=== PATIENT | female | born 1955 | race Caucasian/White ===

== ENCOUNTER 2016-12-12 01:17 | Emergency (ER) | payer MEDICARE, OTHER ==
--- NOTE | ~2016-12-12 | EKG ---
PATIENT: INDIRA JOHNSON UNIT #: [id number] Ventricular Rate: 73 BPM Atrial Rate: 73 BPM P-R Interval: 126 ms QRS Duration: 92 ms Q-T Interval: 450 ms QTC Calculation(Bezet): 495 ms P [place]: 53 degrees Calculated R [place]: -33 degrees Calculated T [place]: -41 degrees Diagnosis Line: Normal sinus rhythm Diagnosis Line: Left axis deviation Diagnosis Line: Minimal voltage criteria for LVH, may be normal Diagnosis Line: variant Diagnosis Line: ST and T wave abnormality, consider inferior Diagnosis Line: ischemia Diagnosis Line: Prolonged QT Diagnosis Line: Abnormal ECG Diagnosis Line: No previous ECGs available Diagnosis Line: Confirmed by SOHA RODRIGUEZ MD ([id number]) on 12/12/2016 Diagnosis Line: 4:45:06 PM INTERPRETING MD: MICHAEL ORNELAS
--- NOTE | ~2016-12-12 | CR72 ---
[facility] A Service of [facility] RADIOLOGY TEXT RESULTS PATIENT: INDIRA JOHNSON LOCATION: [facility] : 54 UNIT #: [id number] AGE: [address]: Colin Olivares MD SEX: F ORDER DR: [id number] [place], [place] [address] [id number] E MR#: [id number] Acc #: [id number] NAME: INDIRA JOHNSON. : 1955 SEX: F STUDY DATE/TIME: 12/12/2016 2:25 UNIT: [facility] ROOM: STUDY DESCRIPTION: CR Chest Single View Portable Attending Physician: Colin Olivares Ordering Physician: Ed Doctor [id number] [facility] Primary Care Physician: Primary Care Physician No MEDICAL IMAGING REPORT This report is preliminary unless electronic signature is present EXAM Portable AP view chest COMPARISON December 01, 2016 and September 13, 2015 INDICATIONS 61-year-old female with cough today. History of COPD. Syncopal episode tonight with dizziness. FINDINGS No evidence of pneumothorax, pleural effusion or acute airspace disease. There is a stable hazy attenuation over the left lung base perhaps representing a combination of breast shadow, cardiac shadow and/or pericardial fat pad. This is unchanged from September 2015. Cardiomediastinal silhouette is stable and within normal limits for portable technique. IMPRESSION No acute radiographic abnormality. Dictated by... Magan Rothman M.D. THIS IS AN ELECTRONICALLY VERIFIED REPORT Magan Rothman M.D. at 12/16/2016 12:35 PM MARTINEZ/connie TD: 12/12/2016 08:59 JOB #: [id number] MEDICAL IMAGING REPORT [facility] [place] [facility]IOLOGY TEXT RESULTS PATIENT: INDIRA JOHNSON LOCATION: [facility] : 54 UNIT #: [id number] AGE: [address]: Colin Olivares MD SEX: F ORDER DR: COPY
--- NOTE | ~2016-12-12 | CR181 ---
[facility] A Service [facility] RADIOLOGY TEXT RESULTS PATIENT: INDIRA JOHNSON LOCATION: [facility] : 54 UNIT #: [id number] AGE: [address]: Colin Olivares MD SEX: F ORDER DR: [id number] [facility] [address] [address] [address]. [place], [place] [address] [id number] E MR#: [id number] Acc #: [id number] NAME: INDIRA JOHNSON. : 1955 SEX: F STUDY DATE/TIME: 12/12/2016 1:04 UNIT: [facility] ROOM: STUDY DESCRIPTION: CR Lumbar Spine 2 or 3 Views Attending Physician: Paddy Olivares M.D. Ordering Physician: Olegario Adams M.D. Primary Care Physician: Primary Care Physician No MEDICAL IMAGING REPORT This report is preliminary unless electronic signature is present EXAM Lumbar spine, 3 views COMPARISON April 03, 2015. INDICATION 61-year-old female with low back pain after falling tonight after syncope. FINDINGS Cholecystectomy clips are noted. There appear to be 6 lumbar-type vertebral bodies. Using this nomenclature, there is posterior spinal fusion hardware at L5-L6 bilaterally with disc spacer material at that level. This is new from comparison. No evidence of hardware complication. No evidence of fracture of the lumbar spine. There is mild lower lumbar levoscoliosis. IMPRESSION Interval placement of spinal fusion hardware. No evidence of complication. No evidence of acute fracture or dislocation of the lumbar spine. Dictated by... Magan Rothman M.D. THIS IS AN ELECTRONICALLY VERIFIED REPORT Magan Rothman M.D. at 12/16/2016 11:11 AM MARTINEZ/carolina TD: 12/12/2016 08:48 JOB #: [id number] [facility] A Service [facility] RADIOLOGY TEXT RESULTS PATIENT: INDIRA JOHNSON LOCATION: [facility] : 54 UNIT #: [id number] AGE: [address]: Colin Olivares MD SEX: F ORDER DR: MEDICAL IMAGING REPORT COPY
[2016-12-12 00:56] LABS: BASOPHIL# 0.1 X10e3 (0-0.3); BASOPHIL% 0.3 % (0-2.5); DIFF IND YES; EOSINOPHIL# 0.3 X10e3 (0-0.7); EOSINOPHIL% 1.6 % (0.0-7.0); HEMATOCRIT 39.2 % (35.0-45.0); HEMOGLOBIN 12.8 gm/dL (12.0-16.0); LYMPHOCYTE# 2.2 X10e3 (1.0-3.5); LYMPHOCYTE% 13.3 % (17.0-45.0); MEAN CELL VOLUME 87.5 FL (83-96); MEAN CORPUSCULAR HEMOGLOBIN 28.6 PG (28-34); MEAN CORPUSCULAR HGB CONC 32.7 g/dL (30-36); MEAN PLATELET VOLUME 9.1 FL (6.5-11.5); MONOCYTE# 1.7 X10e3 (0-1.0); MONOCYTE% 10.2 % (3.0-12.0); NEUTROPHIL# 12.4 X10e3 (1.5-7.1); NEUTROPHIL% 74.6 % (40-75); PLATELET COUNT 212 X10e3 (140-420); RED BLOOD COUNT 4.48 X10e (3.90-5.30); RED CELL DISTRIBUTION WIDTH 14.9 % (11.0-15.5); WHITE BLOOD COUNT 16.6 X10e3 (4.0-10.5)
[2016-12-12 01:13] LABS: BLOOD UREA NITROGEN 13 mg/dL (9-23); BUN/CREATININE RATIO 14.44; CALCIUM SERUM 8.2 mg/dL (8.4-10.2); CARBON DIOXIDE 26 mmol/L (22-31); CHLORIDE 106 mmol/L (100-111); CREATININE SERUM 0.9 mg/dL (0.6-1.4); GLOM FILT RATE Estimated ABOVE60 mL/min (>60); GLUCOSE FASTING 145 mg/dL (70-110); POTASSIUM 3.3 mmol/L (3.5-5.1); SODIUM 140 mmol/L (135-145)
[~2016-12-12 01:17] MED LIST: ADVAIR 250-501 EAC1 IH; ADVAIR 2501 DISK W/D PO; ALBUTEROL 0.5ML INH; ALBUTEROL17 GM INH; ALBUTEROL17 GM NEB; ANEXSIA 7.5/3251 TA1 PO; ASPIRIN PO; BACTROBAN15 GM TOP; CARTIA PO; COMBIVENT INH14.7 GM INH; COMBIVENT U/D3 M2 INH; COUMADIN6 MG PO; CYMBALTA PO; CYMBALTA30 MG PO; DESYREL100 MG PO; DIAZEPAM PO; DIAZEPAM10 MG PO; DUONEB 2.5-0.5 M3 ML NEB; FLEXERIL10 M1 PO; FUROSEMIDE40 MG PO; HYDROCHLOROTHIA25 MG PO; HYDROCODONE/APA1 T16 PO; IMITREX PO; LANOXIN PO; LASIX PO; LISINOPRIL10 MG PO; LISINOPRIL20 MG PO; LORTAB 10/500 T1 TAB PO; LOSARTAN PO; LOSARTAN POTASS50 MG PO; METHADONE PO; METOPROLOL TAR25 MG; METOPROLOL TAR25 MG PO; MICRO-K PO; MICROZIDE12.5 M1 PO; MIDRIN CAPSULE1 CAP PO; NEURONTIN PO; NEXIUM PO; NICOTINE TRANSD21 MG TD; NILSTAT PO; NORCO 10-325 TA1 TAB PO; NORCO 5/325 TAB1 TAB PO; OXYGEN; PAXIL PO; PHENERGAN PO; PHENERGAN25 MG PO; PREDNISONE PO; PREDNISONE10 MG PO; PROZAC40 MG PO; SPIRIVA18 MCG INH; SUMATRIPTAN SU100 MG PO; SYMBICORT INH; SYMBICORT80 INH; TAMIFLU75 M1 PO; THEOPHYLLIN PO; TOPAMAX PO; TOPAMAX50 MG PO; VALIUM10 MG PO; VICODIN PO
[2016-12-12 01:19] LABS: POC - CKMB 1.7 ng/mL (0.0-7.9); POC - TROPONIN <0.05 ng/mL (<=0.05)
[2016-12-12 01:42] LABS: HYPERSEGMENTED POLYS PRESENT; SMUDGE CELLS 3 /100
[2016-12-12 01:43] LABS: PLATELET ESTIMATE NORMAL (NORMAL); RBC NORMAL YES
== END 2016-12-12 04:33 | disposition home or self-care (01) ==
LOC: CED 01:17
PROVIDERS: Emergency Medicine
DX: I95.1 Orthostatic hypotension (principal); E86.1 Hypovolemia; H44.9 Unspecified disorder of globe; F17.210 Nicotine dependence, cigarettes, uncomplicated; Z98.890 Other specified postprocedural states; Z88.0 Allergy status to penicillin; Z88.2 Allergy status to sulfonamides; Z88.6 Allergy status to analgesic agent; Z88.8 Allergy status to other drugs, medicaments and biological substances
CPT/HCPCS: 36415; 71010; 72100; 80048; 82553; 82947; 84484; 85025; 93005; 96361; 96374; 96375; 99284; J1885; J2930

== ENCOUNTER → 2017-01-02 | Outpatient (CLI) | payer MEDICARE, OTHER ==
--- NOTE | ~2017-01-02 | CT98 ---
[facility] A Service of [facility] RADIOLOGY TEXT RESULTS PATIENT: INDIRA JOHNSON LOCATION: [facility] : 54 UNIT #: [id number] AGE: [address]: Darvin Bender MD SEX: F ORDER DR: [id number] [id number]. [place], [place] [address] [id number] O MR#: [id number] Acc #: [id number] NAME: INDIRA JOHNSON : 1955 SEX: F STUDY DATE/TIME: 01/02/2017 14:20 UNIT: [facility] ROOM: STUDY DESCRIPTION: CT Lumbar Spine Wo Cont Attending Physician: Darvin Bender M.D. Referring Physician: Darvin Bender M.D. Ordering Physician: Darvin Bender M.D. Primary Care Physician: Maikel Avilez Jr., M.D. MEDICAL IMAGING REPORT This report is preliminary unless electronic signature is present EXAM Lumbar spine CT no contrast 01/02/2017 COMPARISON MRI lumbar spine 07/03/[address] lumbar spine 04/17/2009. CLINICAL HISTORY Low back pain since December 12, [address] exam was performed with one or more of the following radiation dose reduction techniques: automatic exposure control, adjustment of mA and/or kV according to patient size, and iterative reconstruction. FINDINGS Since the MRI, there has been fusion at L4-5 and there are bilateral pedicle screws at 4 and 5 and a disc prosthetic at 4-5 as yet without solid osseous union across the disc or facet joint but there is also no evidence of device loosening or failure. There is an acute to subacute appearing T12 upper endplate compression fracture with slight flattening of the posterior cortex, and minimal canal compromise. There is perhaps 30% height loss. There is no pedicle or laminar or spinous process involvement. The adjacent soft tissues are unremarkable. There is no evidence of pedicle screw or lloyd loosening or failure. IMPRESSION 1. Status post fusion at L4-5. There is no device loosening or failure though there is also no osseous union across the 4-5 disc and posterior elements. [facility] A Service of [facility] & [facility] RADIOLOGY TEXT RESULTS PATIENT: INDIRA JOHNSON LOCATION: [facility] : 54 UNIT #: [id number] AGE: [address]: Darvin Bender MD SEX: F ORDER DR: 2. Acute to subacute T12 compression fracture with about 30% height loss and only very slight canal compromise. This appears to be benign osteoporotic type compression fracture. 3. There is no evidence of underlying lesion. The exam is otherwise unremarkable. Dictated by... Bakari Lau M.D. THIS IS AN ELECTRONICALLY VERIFIED REPORT Bakari Lau M.D. at 01/09/2017 5:03 PM NANO/connie TD: 01/05/2017 13:14 JOB #: [id number] MEDICAL IMAGING REPORT Page 1 of 1 COPY
== END | disposition home or self-care (01) ==
LOC: CCAT 13:56
DX: M54.5 Low back pain (principal); M48.56XA Collapsed vertebra, not elsewhere classified, lumbar region, initial encounter for fracture; Z98.1 Arthrodesis status
CPT/HCPCS: 72131

== ENCOUNTER → 2017-01-19 | Outpatient (CLI) | payer MEDICARE, OTHER ==
--- NOTE | ~2017-01-19 | BD1 ---
[facility] A Service of [facility] RADIOLOGY TEXT RESULTS PATIENT: INDIRA JOHNSON LOCATION: [facility] : 54 UNIT #: [id number] AGE: [address]: Darvin Bender MD SEX: F ORDER DR: [id number] [facility] [address] [place], [place] [address] [id number] O MR#: [id number] Acc #: [id number] NAME: INDIRA JOHNSON : 1955 SEX: F STUDY DATE/TIME: 01/19/2017 11:13 UNIT: [facility] ROOM: STUDY DESCRIPTION: BD Dexa Bone Dens 1+ Site Attending Physician: Darvin Bender M.D. Referring Physician: Darvin Bender M.D. Ordering Physician: Darvin Bender M.D. Primary Care Physician: Maikel Avilez Jr., M.D. MEDICAL IMAGING REPORT This report is preliminary unless electronic signature is present EXAM DXA scan, 01/19/2017. HISTORY Status post menopause with no hormone replacement therapy. Osteopenia. Hypertension with blood pressure medication. Smoking history for 40 years. FINDINGS Bone mineral density in the left femoral neck was 0.774 g/cm2 which is 0.7 standard deviations below the mean when compared to the young adult reference population which is within the range of normal. This is 0.7 standard deviations above the mean when compared to the age-matched population. Bone mineral density in the distal left forearm was 0.456 g/cm2 which is 2.1 standard deviations below the mean when compared to the young adult reference population which is characteristic of osteopenia. This is 0.6 standard deviations below the mean when compared to the age-matched population. IMPRESSION Bone mineral density in the left hip within the range of normal and within the left forearm characteristic of osteopenia. Dictated by... Jason Villegas M.D. THIS IS AN ELECTRONICALLY VERIFIED REPORT Jason Villegas M.D. at 01/21/2017 8:16 AM LÁZARO/ella [facility] A Service of [facility] & [facility] RADIOLOGY TEXT RESULTS PATIENT: INDIRA JOHNSON [id number] : 53 UNIT #: [id number] AGE: [address]: Darvin Bender MD SEX: F ORDER DR: TD: 01/19/2017 14:13 JOB #: [id number] MEDICAL IMAGING REPORT Page 1 of 1 COPY
== END | disposition home or self-care (01) ==
LOC: CWCC 10:50
DX: M81.0 Age-related osteoporosis without current pathological fracture (principal); M48.54XA Collapsed vertebra, not elsewhere classified, thoracic region, initial encounter for fracture; M85.832 Other specified disorders of bone density and structure, left forearm
CPT/HCPCS: 77080

== ENCOUNTER 2017-06-30 16:20 | Emergency (ER) | payer OTHER, MEDICARE ==
[~2017-06-30] VITALS: Ht 162.6 cm; Wt 80.7 kg
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
== END 2017-06-30 19:48 | disposition home or self-care (01) ==
LOC: CED 16:20
DX: S30.0XXA Contusion of lower back and pelvis, initial encounter (principal); V49.40XA Driver injured in collision with unspecified motor vehicles in traffic accident, initial encounter; Y92.410 Unspecified street and highway as the place of occurrence of the external cause
CPT/HCPCS: 71020; 72072; 72100; 99284